=== PATIENT | female | born 1995 | race African-American/Black ===

== ENCOUNTER 2017-05-16 23:37 | Emergency (ER) | payer MEDICAID ==
[~2017-05-16] VITALS: Ht 162.6 cm; Wt 57.4 kg
[2017-05-16 23:41] VITALS: BP 111/65
== END 2017-05-17 03:00 | disposition left against medical advice (07) ==
LOC: ER 23:37
DX: R11.2 Nausea with vomiting, unspecified (principal); Z53.21 Procedure and treatment not carried out due to patient leaving prior to being seen by health care provider
CPT/HCPCS: 93005